=== PATIENT | male | born 1955 | race Caucasian/White ===

== ENCOUNTER 2017-06-04 09:57 | Observation (INO) ==
--- NOTE | 2017-06-04 10:00 | Emergency Department Note ---
Disposition Clinical Impression: Chest pain Qualifiers: Chest pain type: unspecified Qualified Code(s): R07.9 - Chest pain, unspecified Disposition: Admitted As Inpatient Condition: Fair Referrals: NO,PCP [Primary Care Provider] - Forms: ED Satisfaction Letter Time of Disposition: 11:06 General Adult HPI - General Chief complaint: ED Chest Pain Stated complaint: chest pain Time Seen by Provider: 06/04/17 09:59 Source: patient Mode of arrival: EMS Limitations: no limitations Nursing Notes Reviewed: Yes Vital Signs Reviewed: Yes - History of Present Illness HPI Narrative: This 61-year-old male with a past medical history of a triple coronary artery bypass graft that was performed January 2016. Aunts with the complaint of a right -sided chest pain that started at midnight last night and has been constant since then. He describes the pain as pressure-like. It does not improve or worsen with anything it is just constant. He does not notice it to be exertional. He has had nausea but denies vomiting. Patient arrived by squad in the emergency is given 4 baby aspirin which she says has improved his pain and the pain is now resolved. Planning of some shoulder pain bilaterally that has been going on for the past month he states this is currently a 4 out of 10. As a separate from the chest pain that he had today. - Related Data Home Medications Medication Instructions Recorded Confirmed Aspirin [Adult Low Dose Aspirin EC] 81 mg PO DAILY 02/01/16 02/23/16 Previous Rx's Medication Instructions Recorded Atorvastatin [Lipitor] 80 mg PO HS #30 tablet 02/12/16 Carvedilol [Coreg] 3.125 mg PO BIDWM #60 tablet 02/12/16 Clopidogrel [Plavix] 75 mg PO DAILY #30 tablet 02/12/16 Diltiazem SR (12hr) [Cardizem SR] 90 mg PO BID #60 cap.er.12h 02/12/16 Ipratropium/Albuterol Neb [Duoneb] 3 ml IH QIDR 30 Days 02/12/16 Lisinopril [Zestril] 5 mg PO DAILY #30 tablet 02/12/16 Allergies Allergy/AdvReac Type Severity Reaction Status Date / Time acetaminophen [From Percocet] AdvReac Hallucinati Verified 06/04/17 09:58 ng Oxycodone [From Percocet] AdvReac Hallucinati Verified 06/04/17 09:58 ng All systems ED: reviewed and negative except as stated. Past Medical History - Past Medical History Medical history: Reports: coronary artery disease, hyperlipidemia, hypertension , myocardial infarction Surgical history: Reports: coronary bypass (CABG) Psychiatric history: Reports: no psych history - Social History Smoking Status: Former smoker Smokeless Tobacco Status: No Alcohol use: Reports: none Drug use: Reports: none Physical Exam Patient arrived by squad. Sitting up in bed. Speaking in full sentences. He is alert and oriented. In no acute distress. - General Limitations: no limitations General appearance: alert, in no apparent distress - Head Head exam: atraumatic, normocephalic, normal inspection - Eye Eye exam: Present: normal appearance, PERRL, EOMI - ENT ENT exam: normal exam, normal oropharynx, mucous membranes moist - Neck Neck exam: Present: normal inspection, full ROM, trachea midline. Absent: tenderness - Chest Chest inspection: Present: normal inspection, symmetric chest wall rise. Absent : tenderness - Respiratory Respiratory exam: Present: normal lung sounds bilaterally. Absent: respiratory distress, wheezes, accessory muscle use, prolonged expiratory phase - Cardiovascular Cardiovascular exam: Present: regular rate, normal rhythm, normal heart sounds - Abdominal Exam Abdominal exam: Present: soft, Non-Tender, normal bowel sounds - Back Exam Back exam: Present: normal inspection, full ROM - Neurological Exam Neurological exam: Present: alert, oriented X3 - Psychiatric Psychiatric exam: Present: normal affect, normal mood - Skin Skin exam: Present: warm, dry, intact, normal color Course Course Narrative: Patient presenting with chest pain that started at midnight this morning with a past medical history of coronary artery bypass graft. Former cardiac workup on the patient including a troponin, EKG, chest x-ray. No give him some nitroglycerin SL. I discussed this plan with the patient and he agrees. The EKG repeated in 20 minutes. - Reevaluation(s) Reevaluation #1: Has no calf tenderness or signs of DVT, his heart rate is normal, no immobilization for the last 3 days or surgery in the last 4 weeks, he has no prior history of diagnosed PE or DVT, no hemoptysis and no cancer within the past 6 months. Low risk for PE according the well's score. I do not suspect this is a PE. Time: 10:28 Reevaluation #2: I spoke with Dr. Gar the hospitalist and he agrees to admit the patient for ACS rule out. Time: 11:17 Reevaluation #3: I discussed with the patient his normal labs and chest x-ray and discussed the plan to admit him for further evaluation for his chest pain. The patient agrees with the plan. Time: 11:17 Vital Signs Temperature 97.9 F 06/04/17 09:59 Pulse Rate 65 06/04/17 09:59 Respiratory Rate 18 06/04/17 09:59 Blood Pressure 142/97 06/04/17 09:59 O2 Sat by Pulse Oximetry 96 06/04/17 09:59 Temperature 97.9 F 06/04/17 09:59 Pulse Rate 65 06/04/17 09:59 Respiratory Rate 18 06/04/17 09:59 Blood Pressure 142/97 06/04/17 09:59 O2 Sat by Pulse Oximetry 96 06/04/17 09:59 Oxygen Delivery Oxygen Delivery Room Air Medical Decision Making - Medical Records Medical records reviewed: Yes I reviewed the patient's medical records. - Lab Data Lab results reviewed: Yes I reviewed the patient's lab results. Result diagrams: 06/04/17 10:24 06/04/17 10:24 Lab Results 06/04/17 06/04/17 06/04/17 Range/Units 10:24 10:24 10:24 WBC 8.5 (4.3-11.1) K/mcL RBC 4.79 (4.19-5.50) M/mcL Hgb 13.7 (12.9-16.9) g/dL Hct 42.1 (37.5-50.1) % MCV 87.9 (83.0-100.0) fL MCH 28.6 (28.0-33.3) pg MCHC 32.5 (31.6-35.5) g/dL RDW 13.2 (11.5-14.5) % Plt Count 381 (140-400) K/mcL MPV 9.7 (9.4-12.4) fL Immature Gran % 0.2 (0-4) % Seg Neutrophils % 57.9 % Lymphocytes % 26.7 % Monocytes % 11.1 % Eosinophils % 3.4 % Basophils % 0.7 % Neutrophils # 4.9 (1.6-8.9) K/mcL Lymphocytes # 2.3 (0.6-4.6) K/mcL Monocytes # 0.9 (0.0-1.3) K/mcL Eosinophils # 0.3 (0.0-0.6) K/mcL Basophils # 0.1 (0.0-0.2) K/mcL Sodium 136 (136-145) mEq/L Potassium 4.8 H (3.5-4.5) mEq/L Chloride 107 (98-109) mEq/L Carbon Dioxide 23 (19-29) mEq/L BUN 19 (8-26) mg/dL Creatinine 1.01 (0.72-1.25) mg/dL Est GFR ( Amer) > 60 (> 60) Est GFR (Non-Af Amer) > 60 (> 60) BUN/Creatinine Ratio 19 (6-26) Glucose 86 (70-99) mg/dL Calculated Osmolality 284 (280-300) Calcium 9.5 (8.6-10.8) mg/dL Troponin I 0.00 (0-0.03) ng/mL - Radiology Data Radiology results reviewed: Yes I reviewed the patient's radiology results. Chest X-Ray 06/04/17 10:03 IMPRESSION: Low lung volumes without acute cardiopulmonary process identified. D/ / Fortunato Romero MD / Fortunato Romero MD Interpreting Provider: Fortunato Romero MD - EKG Data EKG #1 EKG attestation: Yes I reviewed and interpreted this EKG. EKG results narrative: Interpreted the EKG. EKG is sinus rhythm with a rate of 63. Patient does have some peaked T waves in leads V2 and V3 which are unchanged from his prior EKG. However there are some nonspecific ST abnormalities that are different from his old EKG when compared to 02/23/2016 EKG #2 EKG results narrative: The patient's repeat EKG done at 10:52 shows a sinus rhythm at 61 bpm and it is unchanged from his prior. The patient has normal MS, QRS, QT/QTc intervals.i Attestation Statement - Attestation Attestation: I examined this patient and my medical decision-making was reviewed with the Resident Physician. I agree with the documented findings, disposition and treatment plan as described except to the extent set forth below. [id number] time provided Patient presents by EMS from home complaining of chest and back discomfort. History of multiple vessel CABG. He appears in no acute distress on exam. EKG reviewed by me
[2017-06-04] MEDS ORDERED: 0.9 % Sodium Chloride 1,000 ML IVC ONE (10:15)
[2017-06-04] MEDS ORDERED: Nitroglycerin 0.4 MG TAB.SUBL SL PRN (10:16)
[2017-06-04 10:31] LABS: Basophils # 0.1 K/mcL (0.0-0.2); Basophils % 0.7 %; Eosinophils # 0.3 K/mcL (0.0-0.6); Eosinophils % 3.4 %; Hematocrit 42.1 % (37.5-50.1); Hemoglobin 13.7 g/dL (12.9-16.9); Immature Granulocytes % 0.2 % (0-4); Lymphocytes # 2.3 K/mcL (0.6-4.6); Lymphocytes % 26.7 %; Mean Corpuscular HGB Conc 32.5 g/dL (31.6-35.5); Mean Corpuscular Hemoglobin 28.6 pg (28.0-33.3); Mean Corpuscular Volume 87.9 fL (83.0-100.0); Mean Platelet Volume 9.7 fL (9.4-12.4); Monocytes # 0.9 K/mcL (0.0-1.3); Monocytes % 11.1 %; Neutrophils # 4.9 K/mcL (1.6-8.9); Platelet Count 381 K/mcL (140-400); Red Blood Count 4.79 M/mcL (4.19-5.50); Red Cell Distribution Width 13.2 % (11.5-14.5); Segmented Neutrophils % 57.9 %
[2017-06-04 10:44] LABS: BUN/Creatinine Ratio 19 (6-26); Blood Urea Nitrogen 19 mg/dL (8-26); Calcium 9.5 mg/dL (8.6-10.8); Carbon Dioxide 23 mEq/L (19-29); Chloride 107 mEq/L (98-109); Glucose 86 mg/dL (70-99); Osmolality,Calculated 284 (280-300); Potassium 4.8 mEq/L (3.5-4.5); Sodium 136 mEq/L (136-145); eGFR For African Americans > 60 (> 60); eGFR For Non-African Americans > 60 (> 60)
[2017-06-04] MEDS ORDERED: *HR* Morphine 2 MG/ML SYRINGE IVP ONE (11:13)
[2017-06-04] MEDS ORDERED: Ondansetron 4 MG/2 ML VIAL IVP PRN (12:01)
[2017-06-04] MEDS ORDERED: Naloxone 0.4 MG/ML INJ IVP PRN (12:01)
--- NOTE | 2017-06-04 12:34 | Internal Med History&Physical ---
<Ar Heck - Last Filed: 06/04/17 13:12> Date of Encounter: 06/04/17 Time of Encounter: 11:30 Assessment and Plan (1) Pressure in right side of chest Current visit: Yes Status: Acute Patient presents with current complaint of right-sided chest pressure that he states began at midnight last night without exertion. Patient has a history of CAD, HTN, HLD, and CT in January 2016 which required a triple bypass. Patient is unable to report if pain radiated to his shoulders due to his chronic bilateral shoulder pain. Patient denies radiation to neck or arms. Patient denies history of DVTs or PEs. Patient to be placed on continuous cardiac telemetry with supplemental O2 and continuous SpO2 monitoring, trended troponins x2, continuation of aspirin therapy; continuation of patient's carvedilol, lisinopril, and atorvastatin; and order for EV echocardiogram. Lipid panel ordered. Will consider cardiology consult based on echocardiogram results. Patient is to be monitored closely for signs of increasing cardiac or respiratory distress. Will monitor vital signs. (2) Shoulder pain, bilateral Current visit: Yes Status: Acute Patient presents with complaint of acute on chronic bilateral shoulder pain that he reports is debilitating. 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 Discussed imaging with patient and who stated their insurance dictates that assessment for rehabilitation must take place first before insurance will pay for MRI imaging. PT and OT consults ordered to assess patient's functioning. Will provide pain management with Toradol IVP 15 mg Q6HR. Qualifiers: Chronicity: chronic Qualified Code(s): M25.512 - Pain in left shoulder; M25.511 - Pain in right shoulder; G89.29 - Other chronic pain (3) Overdose on Tylenol Current visit: Yes Status: Acute Patient presents with chronic bilateral shoulder pain that he states he currently takes 1,000 mg of Tylenol for Q4. Patient reports the Tylenol does not work in relieving his pain. Patient's overuse is not of self-harm nature but for pain management. Patient educated on overuse of Tylenol and pharmacy education consult ordered. LFTs ordered. Qualifiers: Encounter type: initial encounter Qualified Code(s): T39.1X1A - Poisoning by 4-Aminophenol derivatives, accidental (unintentional), initial encounter (4) Hyperlipidemia Current visit: Yes Status: Chronic Patient presents with history of chronic hyperlipidemia. Will continue patient' s atorvastatin. Lipid panel ordered. Qualifiers: Hyperlipidemia type: pure hypercholesterolemia Qualified Code(s): E78.00 - Pure hypercholesterolemia, unspecified; E78.0 - Pure hypercholesterolemia (5) Hypertension Current visit: Yes Status: Chronic Patient presents with history of chronic hypertension. Will continue patient's carvedilol and lisinopril. Will monitor patient and vital signs. Qualifiers: Hypertension type: essential hypertension Qualified Code(s): I10 - Essential (primary) hypertension (6) DVT prophylaxis Current visit: Yes Status: Acute Patient to be placed on DVT prophylaxis due to current admission protocol and bed rest status. Heparin 5,000 units SQ Q8 ordered. Internal Medicine - H&P: HPI Chief complaint: Chest pressure Admitted From: Emergency Dept Plans for Post Hospital Care: Home History of present illness: Mr. Billings is a 61 year old male who presents from the ED with chief complaint of right-sided chest pressure that began at midnight last night. Patient reports that this has never happened before. He states that the pain came on without exertion. Patient was given 324 mg of aspirin when he was transported to the ED which he states helped somewhat with his chest pressure. Patient is unsure of radiation of chest pressure to back or shoulders due to constant bilateral shoulder pain that he states is debilitating. He reports he has had the shoulder pain for two months now and takes 1,000 mg of Tylenol Q4 for the pain but it does not help. Patient also states that he has sciatica that affects both legs. Patient reports he tries to be active and is an ex-construction engineer. Patient denies SOB, nausea, vomiting, headache, neck pain, abdominal pain, dizziness, generalized weakness, pre-syncope, or syncope. Mr. Billings has a medical history of CAD, HLD, HTN, and an CT in January 2016 which required a triple bypass. He denies history of DVT or PE. Mr. Billings is at moderate risk for cardiac event based on his current symptoms, past history and risk factors. He will be placed as observation status with orders for EV echocardiogram, continuous cardiac telemetry, supplemental O2 with continuous SpO2 monitoring, trended troponins x2, and safety precautions due to pain. PT and OT consults placed for shoulder pain and pharmacy education consult ordered for patient's current use of Tylenol. LFTs ordered. Will consider cardiology consult based on echocardiogram results. Patient to be monitored closely for signs of increased cardiac and/or respiratory distress. Time spent with patient > 40 minutes. Past Med Surg Social Fam HX - Past Medical History Source: patient Medical history: coronary artery disease, hyperlipidemia, hypertension, myocardial infarction Psychiatric history: no psych history - Past Surgical History Surgical History: coronary bypass (CABG), herniorrhaphy, orthopedic, other ( Back surgery x2) - Social History Smoking Status: Current every day smoker Packs per day: 1 PPD Smokeless Tobacco Status: No Alcohol use: none Drug use: none Occupational status: previously employed Current living situation: Home, With Family Activity Level: Independent ambulation Recent Out of Country Travel Within the Last 8 Weeks: No Exposure or Possible Exposure to Illness During Travel: No - Family History Father Race: Family Member Ethnicity: Non- Living Status: Age at : 84 Hx Family Cardiac Disorders: Yes (HD, CT, HTN, HLD) Mother Race: Family Member Ethnicity: Non- Living Status: Age at : 85 Cause of : Complications from DM Hx Family Endocrine Disorder: Yes (DM) Brother Race: Family Member Ethnicity: Non- Living Status: Age at : 64 Cause of : Lung cancer Hx Family Cancer: Yes (Lung) Sister Race: Family Member Ethnicity: Non- Living Status: Age at : 53 Cause of : Ovarian cancer Hx Family Cancer: Yes (Ovarian) Internal Medicine - H&P: Meds Aspirin [Adult Low Dose Aspirin EC] 81 mg PO DAILY 02/01/16 [History] Atorvastatin [Lipitor] 80 mg PO HS #30 tablet 02/12/16 [Rx] Lisinopril [Zestril] 5 mg PO DAILY #30 tablet 02/12/16 [Rx] Acetaminophen [Tylenol] 1,000 mg PO Q4H PRN 06/04/17 [History] Carvedilol [Coreg] 3.125 mg PO BID 06/04/17 [History] Celecoxib [Celebrex] 400 mg PO DAILY 06/04/17 [History] Gabapentin [Neurontin] 800 mg PO QAM 06/04/17 [History] Multivitamin [Multi-Day Vitamins] 1 tab PO DAILY 06/04/17 [History] Allergies Oxycodone [From Percocet] Adverse Reaction (Verified 06/04/17 09:58) Hallucinating All Systems PM: A 10-system review of systems was performed and is negative for pertinent findings except as documented above in the HPI. - Constitutional Constitutional: no chills, no fever(s), no night sweats - EENT Eyes: no change in vision, no discharge, no pain, no photophobia Ears: no ear discharge, no ear pain, no tinnitus Nose, mouth and throat: no dysphagia, no nasal discharge, no neck pain, no sore throat - Breasts Breasts: as per HPI - Cardiovascular Cardiovascular ROS IM: as per HPI, chest pain - Respiratory Respiratory: no cough, no dyspnea, no wheezing, no excessive phlegm production - Gastrointestinal Gastrointestinal: no abdominal pain, no diarrhea, no hematemesis, no hematochezia, no melena, no nausea, no vomiting - Genitourinary Genitourinary ROS male: as per HPI - Musculoskeletal Musculoskeletal ROS IM: as per HPI, back pain, other (Bilateral shoulder pain) - Integumentary Integumentary IM: no rash, no unusual bruising - Neurological Neurological ROS: no confusion, no convulsions, no focal weakness, no numbness, no tingling, no tremor(s) - Psychiatric Psychiatric: as per HPI - Endocrine Endocrine IM: as per HPI - Hematologic/Lymphatic Hematologic/Lymphatic: no easy bruising - Allergic/Immunologic Allergic/Immunologic: as per HPI - Constitutional Vitals: Temp Pulse Resp BP Pulse Ox 97.5 F L 56 14 147/92 94 06/04/17 12:10 06/04/17 12:10 06/04/17 12:10 06/04/17 12:10 06/04/17 12:10 General appearance: Present: cooperative, mild distress, A&O X 3, pleasant, answers questions appropriately - Head Head exam: Present: atraumatic, normocephalic - Eye Eye exam: Present: PERRL, conjuntiva pink, sclera anicteric Pupils: Present: PERRL - ENT ENT exam: Present: normal exam, normal external ear exam - Neck Neck exam general surgery: Present: supple, trachea midline. Absent: lymphadenopathy - Respiratory Respiratory exam: Present: CTAB. Absent: accessory muscle use, rales, rhonchi, wheezes - Cardiovascular Cardiovascular exam: Present: RRR, +S1, +S2. Absent: diastolic murmur, gallop, rubs, systolic murmur - GI/Abdominal GI/Abdominal exam: Present: normal bowel sounds, soft, no peritoneal signs. Absent: distended, tenderness - Rectal Rectal exam: Present: deferred - Additional comments: exam deferred. - Extremities Exam Extremities exam: Present: warm, radial pulses palpable and symetrical. Absent : calf tenderness, cyanotic, pedal edema - Back Exam Back exam: Present: normal inspection - Neurological Exam Neurological exam: Present: CN II-XII intact, oriented X3, no focal deficits. Absent: pronater drift, facial droop, speech deficit - Psychiatric Psychiatric exam: Present: normal affect, normal mood - Skin Skin exam: Present: dry, intact Internal Med - H&P Results - Labs CBC & Chem 7: 06/04/17 10:24 06/04/17 10:24 - EKG Data EKG shows normal: sinus rhythm - EKG Data Prior EKG available for review: yes When compared to previous EKG: there is no significant change EKG comments: 06/04/17 12:39 EKG dated 02/23/16 shows sinus bradycardia and non-specific T-wave abnormality. EKG dated 06/04/17 shows sinus rhythm with borderline left axis deviation and possible right ventricular conduction delay. - Diagnostic Studies Chest x-ray Additional comments: Impressions Chest X-Ray 06/04/17 10:03 IMPRESSION: Low lung volumes without acute cardiopulmonary process identified. D/ / Fortunato Romero MD / Fortunato Romero MD Interpreting Provider: Fortunato Romero MD <Patrizia Gar - Last Filed: 06/04/17 13:30> Date of Encounter: 06/04/17 Internal Medicine - H&P: HPI History of present illness: Mr. Billings is a 61 year old male All Systems PM: A 10-system review of systems was performed and is negative for pertinent findings except as documented above in the HPI. - Constitutional Vitals: Temp Pulse Resp BP Pulse Ox 97.5 F L 56 14 147/92 94 06/04/17 12:10 07/22/17 12:10 06/04/17 12:10 06/04/17 12:10 06/04/17 12:10 Internal Med - H&P Results - Labs CBC & Chem 7: 06/04/17 10:24 06/04/17 10:24 - Attending Attestation I saw and examined pt. I have discussed with WET MIX OPERATOR regarding management plan. Agree with the documentation. Pt is chest pain free now. He has Hx of CAD s/p CABG. Will cont cardiac monitoring, track 3 sets of troponin, Echo and stress test if 3 sets of troponin negative and pt remains chest pain free.
[2017-06-04] MEDS: *HR* Heparin 5,000 UNIT/ML VIAL SQ SCH ×2 (16:13→22:02)
[2017-06-04] MEDS: Ketorolac 15 MG/ML VIAL IVP PRN ×2 (16:21→21:58)
[2017-06-04] MEDS ORDERED: Ketorolac 15 MG/ML VIAL IVP SCH (18:00)
[2017-06-05] MEDS: *HR* Morphine 2 MG/ML SYRINGE IVP PRN ×2 (02:56→10:44)
[2017-06-05] MEDS: Ketorolac 15 MG/ML VIAL IVP PRN (04:52)
[2017-06-05] MEDS: *HR* Heparin 5,000 UNIT/ML VIAL SQ SCH (04:52)
[2017-06-05 05:12] LABS: Basophils # 0.1 K/mcL (0.0-0.2); Basophils % 0.9 %; Eosinophils # 0.4 K/mcL (0.0-0.6); Eosinophils % 3.6 %; Hematocrit 38.3 % (37.5-50.1); Hemoglobin 12.6 g/dL (12.9-16.9); Immature Granulocytes % 0.4 % (0-4); Lymphocytes # 2.8 K/mcL (0.6-4.6); Lymphocytes % 27.7 %; Mean Corpuscular HGB Conc 32.9 g/dL (31.6-35.5); Mean Corpuscular Hemoglobin 29.5 pg (28.0-33.3); Mean Corpuscular Volume 89.7 fL (83.0-100.0); Mean Platelet Volume 10.6 fL (9.4-12.4); Monocytes # 1.1 K/mcL (0.0-1.3); Monocytes % 11.3 %; Neutrophils # 5.7 K/mcL (1.6-8.9); Platelet Count 323 K/mcL (140-400); Red Blood Count 4.27 M/mcL (4.19-5.50); Red Cell Distribution Width 13.6 % (11.5-14.5); Segmented Neutrophils % 56.1 %
[2017-06-05 05:14] LABS: INR 1.1; Prothrombin Time 11.5 Seconds (9.4-12.1)
[2017-06-05 05:17] LABS: Activated Partial Thrombo Time 30.5 Seconds (26.0-36.0)
[2017-06-05 05:30] LABS: Alanine Aminotransferase 28 Units/L (0-55); Albumin 3.1 g/dL (3.5-5.0); Albumin/Globulin Ratio 0.9 (1.1-2.2); Alkaline Phosphatase 98 Units/L (38-126); Aspartate Amino Transferase 17 Units/L (5-34); BUN/Creatinine Ratio 22 (6-26); Bilirubin,Direct 0.1 mg/dL (0.0-0.5); Bilirubin,Indirect 0.2 mg/dL (0.0-1.2); Bilirubin,Total 0.3 mg/dL (0.2-1.2); Blood Urea Nitrogen 24 mg/dL (8-26); Calcium 9.2 mg/dL (8.6-10.8); Carbon Dioxide 21 mEq/L (19-29); Chloride 110 mEq/L (98-109); Chol/HDL Ratio 4.2 (0-4.9); Cholesterol 88 mg/dL (< 200); Globulin 3.5 g/dL (2.4-3.5); Glucose 87 mg/dL (70-99); HDL Cholesterol 21 mg/dL (40-59); LDL Cholesterol,Calculated 35 mg/dL (0-99); Osmolality,Calculated 291 (280-300); Potassium 4.9 mEq/L (3.5-4.5); Sodium 139 mEq/L (136-145); Total Protein 6.6 g/dL (6.0-8.3); Triglycerides 161 mg/dL (< 150); eGFR For African Americans > 60 (> 60); eGFR For Non-African Americans > 60 (> 60)
[2017-06-05] MEDS ORDERED: Regadenoson 0.4 MG/5 ML SYRINGE IVP ONE (08:58)
[2017-06-05] MEDS ORDERED: Celecoxib 200 MG CAPSULE PO SCH (09:00)
[2017-06-05] MEDS ORDERED: Gabapentin 400 MG CAPSULE PO SCH (09:00)
[2017-06-05] MEDS ORDERED: Aspirin Enteric Coated 81 MG Tablet PO SCH (09:00)
--- NOTE | 2017-06-05 10:54 | Nuclear Medicine Stress Report ---
Regadenoson Nuclear Stress Name: Nahum Billings Date of Study: 06/05/2017 Date: 1955 Ht: 69.0 in Medical Record#: [id number] Age: 61 Wt: 190.0 lb Gender: Male Order #: [id number] Location: [facility] Room: opt Supervising Provider: Dayan Oliveira CNP Reading Physician: Stanislaw Burk MD, [facility] Ordering Physician: Vianca Damon MD Primary Care Physician: None Stress Technologist: Linda Patel, LOG GRADER, CCT, CPFT Pack Worker: Emeka Burgess Indications: Chest Pain Impression: Gated LVEF = 65%. Small, moderate intensity, fixed perfusion defect involving the basal inferior/inferolateral wall. Possible artifact, however, a small myocardial infarction cannot be excluded. There is no evidence of reversible myocardial ischemia. History: Hypertension Hypercholesteremia History of Smoking History of Coronary Artery Bypass Surgery Stress Test Summary: Stress Test Type: Pharmacologic Regadenoson 0.4mg/5ml given IV Baseline Information: Initial Heart Rate: 59 Blood Pressure: 126/80 Stress Information: Test Terminated Due to (primary): As per protocol Maximum Blood Pressure: 134/80 Maximum Heart Rate: 103 Percent Maximum Heart Rate Achieved: 66 Double Product: [id number] Symptoms: Shortness of breath Nuclear Summary: SPECT myocardial perfusion imaging using Tc99m Sestamibi given intravenously was performed at rest and following cardiac stress testing. The resting images were obtained following initial dose of 11.3 mCi. Following stress an additional dose of 35.6 mCi was given at peak exercise or 30 seconds post regadenoson infusion. Findings: Stress Note * Resting ECG demonstrated sinus bradycardia (59 bpm). * No baseline arrhythmias were noted. * Patient had no chest pain during stress. * No arrhythmias were noted during stress. * No significant ECG changes with regadenoson. Hemodynamic responses * Normal hemodynamic responses to pharmacologic stress. Study Quality * Study quality is average. Gated EF % * Gated LVEF = 65%. Left Ventricle * The left ventricle is not dilated. * Small, moderate intensity, fixed perfusion defect involving the basal inferior/inferolateral wall. Possible artifact, however, a small myocardial infarction cannot be excluded. * All other segmental perfusion normal in rest and stress. * There is no evidence of reversible myocardial ischemia. TID * No evidence of transient ischemic dilatation. Updated by Stanislaw Burk MD, FACC on 06/05/2017 10:48:39 AM electronically signed on 06/05/2017 10:49:30 AM with status of Final
[2017-06-05 11:04] VITALS: BP 150/84
--- NOTE | 2017-06-05 12:03 | Discharge Summary ---
Date of Encounter: 06/05/17 Time of Encounter: 11:56 - Discharge Diagnosis (1) Shoulder pain, bilateral Priority: Primary Status: Acute Qualifiers: Chronicity: chronic Qualified Code(s): M25.512 - Pain in left shoulder; M25.511 - Pain in right shoulder; G89.29 - Other chronic pain (2) CAD (coronary artery disease) Priority: Secondary Status: Chronic Qualifiers: Coronary Disease-Associated Artery/Lesion type: [place] artery [place] vs. transplanted heart: [place] heart Associated angina: without angina Qualified Code(s): I25.10 - Atherosclerotic heart disease of [place] coronary artery without angina pectoris (3) COPD (chronic obstructive pulmonary disease) Priority: Secondary Status: Chronic Qualifiers: COPD type: emphysema Emphysema type: unspecified Qualified Code(s): J43.9 - Emphysema, unspecified (4) Tobacco use disorder Priority: Secondary Status: Chronic (5) Hyperkalemia Priority: Primary Status: Acute - Discharge Medications Prescriptions: HYDROcodone/Acet 10/325 mg [[place] 10-325 mg] 1 tab PO Q4HR PRN #14 tab PRN Reason: Pain Cyclobenzaprine [Flexeril] 5 mg PO TID PRN #20 tablet PRN Reason: Muscle Pain Home Medications: Aspirin [Adult Low Dose Aspirin EC] 81 mg PO DAILY 02/01/16 [History] Atorvastatin [Lipitor] 80 mg PO HS #30 tablet 02/12/16 [Rx] Lisinopril [Zestril] 5 mg PO DAILY #30 tablet 02/12/16 [Rx] Acetaminophen [Tylenol] 1,000 mg PO Q4H PRN 06/04/17 [History] Carvedilol [Coreg] 3.125 mg PO BID 06/04/17 [History] Gabapentin [Neurontin] 800 mg PO QAM 06/04/17 [History] Multivitamin [Multi-Day Vitamins] 1 tab PO DAILY 06/04/17 [History] Cyclobenzaprine [Flexeril] 5 mg PO TID PRN #20 tablet 06/05/17 [Rx] HYDROcodone/Acet 10/325 mg [[place] 10-325 mg] 1 tab PO Q4HR PRN #14 tab 06/05/17 [Rx] Allergies/Adverse Reactions: Allergies Oxycodone [From Percocet] Adverse Reaction (Verified 06/04/17 09:58) Hallucinating Procedures/tests Complete & Pending: Procedures Performed prior 72 hours Category Date Time Status NM [place] perf SPECT multi [NM] Routine Exams 06/04/17 13:11 Taken EV echocardiogram Routine Y 06/05/17 12:09 Completed SP pharm nuclear stress Routine Y 06/04/17 13:11 Completed Date of admission: 06/04/17 11:57 Primary care physician: PCP NO Consults: 06/04/17 12:04 Consult to Occupational Therapy [CONS] Routine Comment: Evaluate, develop and implement POC Reason for Consult: Patient is experiencing bilateral pain in shoulders that he describes as debilitating and rates the pain as 9 out of 10. Pain is worse in right shoulder and patient reports not being able to lift arm very high. Consult to Physical Therapy [CONS] Routine Comment: Evaluate, develop and implement POC Reason for Consult: Patient is experiencing bilateral pain in shoulders that he describes as debilitating and rates the pain as 9 out of 10. Pain is worse in right shoulder and patient reports not being able to lift arm very high. 06/04/17 12:11 Consult for Pharmacy Education [CONS] Routine Reason for Consult: Patient has bilateral shoulder pain and takes 1,000 mg Tylenol Q4 for pain. Needs education regarding use. Call Completed: Yes - Patient Status Disposition: Home, Self-Care Condition: Good Functional capacity at discharge: independent ambulation Overall status at discharge: patient is not back to baseline - Discharge Instructions Instructions: Hydrocodone/Acetaminophen (By mouth), Cyclobenzaprine (By mouth) , Chest Pain (GEN) - Diet and Activity Activity: resume usual activities as tolerated Diet: low fat, low cholesterol, low salt diet Interval History: Patient and family are very concerned about his right shoulder pain. He has stated that he has been unable to sleep at home due to severe pain but here in the hospital he was able to sleep because of receiving morphine. Hospital course: Mr. Billings is a 61 year old male with past medical history of CAD status post CABG and hypertension who presented with a chief complaint of right shoulder pain. He also described his right shoulder pain radiated to his left side. No shortness of breath. Chest the right was negative. Echocardiogram showed LVEF 60%. Stress test showed fixed perfusion defect, possible artifact versus infarct. No reversible myocardial ischemia. CT of right shoulder showed no acute or shows abnormality, mild osteoarthritis of the glenohumeral and acromioclavicular joints, mild emphysematous changes within the partially visualized right lung. Patient and family were very concerned about his severe pain and right shoulder. He will will restart physical therapy this coming Tuesday and after a month his insurance will allow him to have an MRI of his shoulder. I encouraged him to follow up with his primary care physician and do physical therapy as much as he can. I will prescribe him [place] and Flexeril for pain control. PLAN: Follow-up with primary care physician this coming Tuesday for right shoulder pain, may consider orthopedic service referral. Repeat potassium level and address need to change lisinopril medication. Patient needs PFTs due to emphysematous changes in the lung in CT right shoulder and heavy tobacco use. Smoking cessation provided. - Time Spent with Patient Total time spent providing and/or coordinating discharge services: - Constitutional Vitals: Temp Pulse Resp BP Pulse Ox 98.0 F 64 14 150/84 94 06/05/17 11:02 06/05/17 11:02 06/05/17 11:02 06/05/17 11:02 06/05/17 11:02 General appearance: Present: cooperative, A&O X 3, pleasant, no acute distress, answers questions appropriately - Neck Neck exam general surgery: Present: supple, trachea midline. Absent: lymphadenopathy - Respiratory Respiratory exam: Present: CTAB - Cardiovascular Cardiovascular exam: Present: RRR - GI/Abdominal GI/Abdominal exam: Present: normal bowel sounds, soft. Absent: distended, tenderness - Extremities Exam Extremities exam: Absent: pedal edema Additional comments: Right shoulder: Range of motion is limited due to pain. Patient is unable to raise right arm above his shoulders. His unable to touch his back with his right arm. - Back Exam Back exam: Absent: CVA tenderness (L), CVA tenderness (R) - Neurological Exam Neurological exam: Present: alert, oriented X3, no focal deficits, strengths equal and symetr throughout. Absent: facial droop, speech deficit - Skin Skin exam: Absent: rash
[2017-06-05] MEDS ORDERED: *HR* HYDROcodone/Acet 10/325 mg TABLET PO ONE (12:25)
--- NOTE | 2017-06-06 13:36 | Electrocardiograph Report ---
[place] [id number] Test Date: 2017-06-04 Pat Name: Nahum Billings Department: 103 Room: 3B Gender: M Internal Sales: : 1955 Requested By: Ar Bergman Order Number: [id number] Reading MD: Clement Vallejo MD Measurements Intervals [place] Rate: 63 P: 45 [place]: 184 QRS: -28 QRSD: 113 T: 33 QT: 354 QTc: 361 Interpretive Statements SINUS RHYTHM BORDERLINE LEFT AXIS DEVIATION Electronically Signed On 06-06-2017 13:34:54 EDT by Clement Vallejo MD
--- NOTE | 2017-06-06 13:46 | Electrocardiograph Report ---
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
== END 2017-06-05 14:28 | disposition home or self-care (01) ==
LOC: EMEROO 09:57 → 3BNU 09:57 → SUATTDRO 11:57 → 3BNU 12:07
PROVIDERS: ADMIT Internal Medicine; ATTEND Internal Medicine